=== PATIENT | male | born 1985 | race Caucasian/White ===

== ENCOUNTER 2017-04-25 06:38 | Emergency (ER) | payer OTHER, MEDICAID ==
[~2017-04-25] VITALS: Ht 180.3 cm; Wt 84.3 kg
[2017-04-25 06:44] VITALS: BP 126/72; PULSE 78; RESP 16; TEMP 97.8; O2SAT 100
[2017-04-25] MEDS ORDERED: SODIUM CHLOR 0.9% 1000 ML INJ 1,000 ML IV SCH (07:09)
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
[2017-04-25] MEDS ORDERED: ONDANSETRON HCL 4 MG/2 ML VIAL IVP ONE (07:15)
[2017-04-25] MEDS ORDERED: SODIUM CHLORIDE 0.9% FLUSH 10 ML FLUSH IVF PRN (07:15)
[2017-04-25] MEDS ORDERED: MORPHINE SULFATE 4 MG/ML INJ IV ONE (07:15)
[2017-04-25 07:25] VITALS: RESP 16; O2SAT 100
--- NOTE | 2017-04-25 07:31 | RADRPT ---
EXAM DATE/TIME: 04/25/2017 07:22 [facility] COMPARISON: No previous studies available for comparison. INDICATIONS : Short of breath. MEDICAL HISTORY : None. SURGICAL HISTORY : None. ENCOUNTER: Initial ACUITY: 3 days PAIN SCORE: 0/10 LOCATION: Bilateral chest FINDINGS: A single view of the chest demonstrates the lungs to be symmetrically aerated without evidence of mas s, infiltrate or effusion. Azygos fissure incidentally noted. The cardiomediastinal contours are unr emarkable. Osseous structures are intact. CONCLUSION: No evidence of acute cardiopulmonary disease. Jos Marlow MD on April 25, 2017 at 7:29 Board Certified Radiologist. This report was verified electronically.
[2017-04-25 07:43] LABS: AUTOMATED NEUTROPHIL # 3.8 TH/MM3 (1.8-7.7); BASOPHIL # 0.1 TH/MM3 (0-0.2); BASOPHIL % 1.2 % (0.0-2.0); EOSINOPHIL # 0.2 TH/MM3 (0-0.4); EOSINOPHIL % 2.9 % (0.0-4.0); HEMATOCRIT 46.5 % (39.0-51.0); HEMO FLAGS DIFF FINAL; LYMPH % 26.3 % (9.0-44.0); LYMPHOCYTE # 1.7 TH/MM3 (1.0-4.8); MEAN CELL VOLUME 90.8 FL (80.0-100.0); MEAN CORPUSCULAR HEMOGLOBIN 30.3 PG (27.0-34.0); MEAN CORPUSCULAR HGB CONC 33.3 % (32.0-36.0); MONO % 9.8 % (0.0-8.0); NEUT % 59.8 % (16.0-70.0); PLATELET COUNT 212 TH/MM3 (150-450); RED BLOOD COUNT 5.12 MIL/MM3 (4.50-5.90); RED CELL DISTRIBUTION WIDTH 12.8 % (11.6-17.2); WHITE BLOOD COUNT 6.4 TH/MM3 (4.0-11.0)
[2017-04-25 07:51] LABS: POTASSIUM 3.8 MEQ/L (3.5-5.1)
[2017-04-25 07:54] LABS: BICARBONATE 27.8 MEQ/L (21.0-32.0)
[2017-04-25] MEDS ORDERED: IOHEXOL 350 MG/ML 10 ML VIAL (for RAD DIAG) IV ONE (07:55)
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
[2017-04-25] MEDS ORDERED: NORC5TAB PO (08:08)
[2017-04-25] MEDS ORDERED: IBUP-232 PO (08:08)
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
[2017-04-25 08:30] VITALS: RESP 16
[2017-04-25] MEDS ORDERED: MORPHINE SULFATE 4 MG/ML INJ IV PUSH ONE (08:30)
[2017-04-25 09:13] VITALS: BP 121/68
== END 2017-04-25 09:15 | disposition home or self-care (01) ==
LOC: PHED 06:38
DX: S22.41XA Multiple fractures of ribs, right side, initial encounter for closed fracture (principal); S36.112A Contusion of liver, initial encounter; Z72.0 Tobacco use; W22.8XXA Striking against or struck by other objects, initial encounter; Y93.16 Activity, rowing, canoeing, kayaking, rafting and tubing; Y93.17 Activity, water skiing and wake boarding
CPT/HCPCS: 71010; 71260; 74177; 80048; 85025; 96361; 96374; 96375; 99285; J2270; J2405; J7030; Q9967

== ENCOUNTER 2017-04-27 10:41 | Emergency (ER) | payer MEDICAID ==
[~2017-04-27] VITALS: Ht 180.3 cm; Wt 86.9 kg
[~2017-04-27 10:41] MED LIST: IBUP-232 PO; NORC5TAB PO
[2017-04-27] MEDS ORDERED: SODIUM CHLOR 0.9% 1000 ML INJ 1,000 ML IV SCH (10:54)
[2017-04-27] MEDS ORDERED: SODIUM CHLORIDE 0.9% FLUSH 10 ML FLUSH IV FLUSH PRN (11:00)
[2017-04-27] MEDS ORDERED: HYDROmorphone HCL PF 2 MG/ML VIAL IVS ONE (11:00)
[2017-04-27] MEDS ORDERED: ONDANSETRON HCL 4 MG/2 ML VIAL IVP ONE (11:00)
[2017-04-27 11:04] VITALS: BP 140/93; PULSE 76; RESP 16; TEMP 98.9; O2SAT 99
[2017-04-27 11:07] VITALS: RESP 16; O2SAT 99
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
[2017-04-27 11:50] LABS: AUTOMATED NEUTROPHIL # 4.7 TH/MM3 (1.8-7.7); BASOPHIL # 0.2 TH/MM3 (0-0.2); BASOPHIL % 2.8 % (0.0-2.0); EOSINOPHIL # 0.1 TH/MM3 (0-0.4); EOSINOPHIL % 1.7 % (0.0-4.0); HEMATOCRIT 45.8 % (39.0-51.0); HEMO FLAGS DIFF FINAL; LYMPH % 20.2 % (9.0-44.0); LYMPHOCYTE # 1.4 TH/MM3 (1.0-4.8); MEAN CELL VOLUME 89.5 FL (80.0-100.0); MEAN CORPUSCULAR HEMOGLOBIN 30.1 PG (27.0-34.0); MEAN CORPUSCULAR HGB CONC 33.7 % (32.0-36.0); NEUT % 69.3 % (16.0-70.0); PLATELET COUNT 205 TH/MM3 (150-450); RED BLOOD COUNT 5.11 MIL/MM3 (4.50-5.90); RED CELL DISTRIBUTION WIDTH 11.8 % (11.6-17.2); WHITE BLOOD COUNT 6.8 TH/MM3 (4.0-11.0)
[2017-04-27 11:56] LABS: CHLORIDE 107 MEQ/L (98-107); POTASSIUM 4.4 MEQ/L (3.5-5.1); SODIUM (NA) 140 MEQ/L (136-145)
[2017-04-27 12:00] LABS: ANION GAP 5 MEQ/L (5-15); BICARBONATE 27.6 MEQ/L (21.0-32.0); BLOOD UREA NITROGEN 12 MG/DL (7-18)
[2017-04-27 12:03] LABS: ALT (GPT) 22 U/L (12-78); AST (GOT) 17 U/L (15-37); GLOMERULAR FILTRATION RATE 92 ML/MIN (>89)
[2017-04-27 12:04] LABS: TOTAL BILIRUBIN ADULT 0.5 MG/DL (0.2-1.0)
[2017-04-27 12:06] LABS: ALKALINE PHOSPHATASE 83 U/L (45-117)
[2017-04-27] MEDS ORDERED: IOHEXOL 350 MG/ML 10 ML VIAL (for RAD DIAG) IV ONE (13:07)
[2017-04-27 13:39] VITALS: BP 114/67; PULSE 62; RESP 18; O2SAT 99
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
[2017-04-27] MEDS ORDERED: PERC5TAB12 PO (14:16)
[2017-04-27] MEDS ORDERED: KETOROLAC TROMETHAMINE 30 MG/ML (IVP) VIAL IV PUSH ONE (14:30)
[2017-04-27] MEDS ORDERED: HYDROmorphone HCL PF 1 MG/ML VIAL IV PUSH ONE (14:30)
== END 2017-04-27 14:39 | disposition home or self-care (01) ==
LOC: PHED 10:41
DX: S22.41XA Multiple fractures of ribs, right side, initial encounter for closed fracture (principal); X58.XXXA Exposure to other specified factors, initial encounter
CPT/HCPCS: 71260; 74177; 80053; 85025; 94150; 96361; 96374; 96375; 99285; J1170; J2405; J7030; Q9967

== ENCOUNTER 2017-05-16 18:13 | Emergency (ER) | payer MEDICAID ==
[~2017-05-16] VITALS: Ht 180.3 cm; Wt 85.0 kg
[~2017-05-16 18:13] MED LIST changes: +PERC5TAB12 PO
[2017-05-16 18:49] VITALS: BP 130/82; PULSE 80; RESP 16; TEMP 98.7; O2SAT 98
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
[2017-05-16] MEDS ORDERED: IOHEXOL 350 MG/ML 10 ML VIAL (for RAD DIAG) IVCONTRAST ONE (20:19)
[2017-05-16 20:21] LABS: AUTOMATED NEUTROPHIL # 5.3 TH/MM3 (1.8-7.7); BASOPHIL # 0.2 TH/MM3 (0-0.2); BASOPHIL % 1.7 % (0.0-2.0); EOSINOPHIL # 0.2 TH/MM3 (0-0.4); EOSINOPHIL % 2.3 % (0.0-4.0); HEMATOCRIT 46.5 % (39.0-51.0); HEMO FLAGS DIFF FINAL; LYMPH % 29.9 % (9.0-44.0); LYMPHOCYTE # 2.8 TH/MM3 (1.0-4.8); MEAN CELL VOLUME 89.2 FL (80.0-100.0); MEAN CORPUSCULAR HEMOGLOBIN 30.8 PG (27.0-34.0); MEAN CORPUSCULAR HGB CONC 34.5 % (32.0-36.0); MONO % 7.7 % (0.0-8.0); NEUT % 58.4 % (16.0-70.0); PLATELET COUNT 223 TH/MM3 (150-450); RED BLOOD COUNT 5.21 MIL/MM3 (4.50-5.90); WHITE BLOOD COUNT 9.2 TH/MM3 (4.0-11.0)
[2017-05-16 20:30] LABS: POTASSIUM 3.8 MEQ/L (3.5-5.1)
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
[2017-05-16] MEDS ORDERED: TRAM50TA PO (21:36)
[2017-05-16] MEDS ORDERED: IBUP-232 PO (21:44)
== END 2017-05-16 21:50 | disposition home or self-care (01) ==
LOC: PHEFT 18:13
DX: S22.41XA Multiple fractures of ribs, right side, initial encounter for closed fracture (principal); W11.XXXA Fall on and from ladder, initial encounter
CPT/HCPCS: 71260; 80048; 85025; 99285; Q9967